=== PATIENT | male | born 1960 | race Caucasian/White ===

== ENCOUNTER 2016-10-28 08:07 | Inpatient (IN) | payer MEDICARE ==
[2016-10-28] MEDS ORDERED: NO HOME MEDICATION XX (08:08)
[2016-10-28 08:52] LABS: BASO % 0.4 % (0-2); EOS % 1.2 % (0-7); EOSINOPHIL ABSOLUTE COUNT 0.1 tho/cmm (0.0-0.7); HGB-HEMOGLOBIN 17.2 gm/dl (13.5-17.0); IMMATURE GRANULOCYTES ABSOLUTE 0.02 tho/cmm (0-0.03); IMMATURE GRANULOCYTES PERCENT 0.2 % (0-0.3); LYMPH ABSOLUTE COUNT 1.9 tho/cmm (0.8-4.5); MCH (MEAN CORPUSCULAR HGB) 39.8 pg (28.0-32.0); MCHC MEAN CORPUSCULAR HGB CONC 35.1 % (32.0-36.0); MCV (MEAN CELL VOLUME) 113.4 fl (82.0-96.0); MONO % 10.2 % (0-12); MONOCYTE ABSOLUTE COUNT 0.8 tho/cmm (0.0-1.2); NEUTROPHIL ABSOLUTE COUNT 5.2 tho/cmm (1.6-8.0); NEUTROPHIL-AUTOMATED 5.2 tho/cmm (1.6-8.0); PLATELET COUNT 539 tho/cmm (150-450); RED BLOOD COUNT 4.32 mil/cmm (4.40-5.70); WHITE BLOOD COUNT 8.1 tho/cmm (4.0-10.0)
[2016-10-28 08:53] LABS: RED CELL DISTRIBUTION WIDTH 14.1 % (12.4-16.4)
[2016-10-28 08:59] LABS: ALB/GLOB RATIO 0.7 (0.8-2.0); ALBUMIN 3.1 g/dl (3.5-5.0); ALKALINE PHOSPHATASE 293 U/L (33-138); ALT/SGPT 72 U/L (12-78); ANION GAP 20 mmol/L (0-20); AST/SGOT 78 U/L (10-40); BILIRUBIN,DIRECT 1.3 mg/dl (0.0-0.3); BILIRUBIN,TOTAL 2.3 mg/dl (0.0-1.5); BLOOD UREA NITROGEN 10 mg/dl (6-24); CARBON DIOXIDE-VENOUS 26 mmol/L (22-32); CHLORIDE 87 mmol/l (96-110); CREATININE 1.08 mg/dl (0.60-1.30); GLUCOSE 199 mg/dL (70-110); LIPASE 847 U/L (73-393); MAGNESIUM 1.6 mg/dl (1.3-2.6); SODIUM 131 mmol/L (135-145); eGFR VALUE FOR BLACK 90 mL/Min
[2016-10-28 10:25] LABS: URINE BILIRUBIN NEGATIVE (NEG); URINE BLOOD NEGATIVE (NEG); URINE GLUCOSE (UA) NEGATIVE (NEG); URINE KETONE NEGATIVE (NEG); URINE LEUKOCYTE ESTERASE NEGATIVE (NEG); URINE NITRITE NEGATIVE (NEG); URINE PROTEIN NEGATIVE (NEG); URINE SPECIFIC GRAVITY 1.015 (1.003-1.030)
[2016-10-28 10:26] LABS: URINE APPEARANCE CLEAR; URINE COLOR YELLOW
[2016-10-28 11:25] LABS: ALCOHOL (ETOH) <10 mg/dl (<10); PHOSPHOROUS 1.6 mg/dl (2.5-4.9)
[2016-10-28 23:19] LABS: ANION GAP 10 mmol/L (0-20); BLOOD UREA NITROGEN 10 mg/dl (6-24); CALCIUM 7.2 mg/dl (8.5-10.5); CARBON DIOXIDE-VENOUS 30 mmol/L (22-32); CHLORIDE 104 mmol/l (96-110); CREATININE 0.73 mg/dl (0.60-1.30); GLUCOSE 100 mg/dL (70-110); MAGNESIUM 1.4 mg/dl (1.3-2.6); SODIUM 141 mmol/L (135-145); eGFR VALUE FOR BLACK >90 mL/Min
[2016-10-28 23:23] LABS: POTASSIUM 2.6 mmol/L (3.7-5.1)
[2016-10-29 06:18] LABS: BASO % 1.4 % (0-2); BASO ABSOLUTE COUNT 0.1 tho/cmm (0.0-0.2); EOS % 2.4 % (0-7); EOSINOPHIL ABSOLUTE COUNT 0.1 tho/cmm (0.0-0.7); HCT-HEMATOCRIT 33.9 % (36.0-53.5); HGB-HEMOGLOBIN 11.9 gm/dl (13.5-17.0); IMMATURE GRANULOCYTES ABSOLUTE 0.01 tho/cmm (0-0.03); IMMATURE GRANULOCYTES PERCENT 0.2 % (0-0.3); LYMPH ABSOLUTE COUNT 1.3 tho/cmm (0.8-4.5); MCH (MEAN CORPUSCULAR HGB) 39.3 pg (28.0-32.0); MCHC MEAN CORPUSCULAR HGB CONC 35.1 % (32.0-36.0); MCV (MEAN CELL VOLUME) 111.9 fl (82.0-96.0); MONO % 9.4 % (0-12); MONOCYTE ABSOLUTE COUNT 0.5 tho/cmm (0.0-1.2); NEUTROPHIL ABSOLUTE COUNT 3.1 tho/cmm (1.6-8.0); NEUTROPHIL-AUTOMATED 3.1 tho/cmm (1.6-8.0); NEUTROPHILS % 61.6 % (40-80); PLATELET COUNT 288 tho/cmm (150-450); RED BLOOD COUNT 3.03 mil/cmm (4.40-5.70); RED CELL DISTRIBUTION WIDTH 14.3 % (12.4-16.4); WHITE BLOOD COUNT 5.1 tho/cmm (4.0-10.0)
[2016-10-29 06:38] LABS: ALBUMIN 2.1 g/dl (3.5-5.0); ALKALINE PHOSPHATASE 210 U/L (33-138); ALT/SGPT 75 U/L (12-78); BILIRUBIN,TOTAL 2.2 mg/dl (0.0-1.5); BLOOD UREA NITROGEN 8 mg/dl (6-24); CALCIUM 7.6 mg/dl (8.5-10.5); CARBON DIOXIDE-VENOUS 28 mmol/L (22-32); CHLORIDE 104 mmol/l (96-110); CREATININE 0.69 mg/dl (0.60-1.30); GLUCOSE 94 mg/dL (70-110); SODIUM 142 mmol/L (135-145); eGFR VALUE FOR BLACK >90 mL/Min
[2016-10-29 06:40] LABS: ALB/GLOB RATIO 0.7 (0.8-2.0); ANION GAP 13 mmol/L (0-20); AST/SGOT 116 U/L (10-40); LIPASE 488 U/L (73-393); POTASSIUM 3.1 mmol/L (3.7-5.1)
[2016-10-30 07:45] LABS: HGB-HEMOGLOBIN 13.1 gm/dl (13.5-17.0); PLATELET COUNT 352 tho/cmm (150-450)
[2016-10-30 08:02] LABS: ANION GAP 14 mmol/L (0-20); BLOOD UREA NITROGEN 7 mg/dl (6-24); CALCIUM 7.9 mg/dl (8.5-10.5); CARBON DIOXIDE-VENOUS 25 mmol/L (22-32); CHLORIDE 102 mmol/l (96-110); CREATININE 0.66 mg/dl (0.60-1.30); GLUCOSE 101 mg/dL (70-110); MAGNESIUM 1.3 mg/dl (1.3-2.6); PHOSPHOROUS 1.6 mg/dl (2.5-4.9); SODIUM 138 mmol/L (135-145); eGFR VALUE FOR BLACK >90 mL/Min
[2016-10-30 08:06] LABS: POTASSIUM 2.8 mmol/L (3.7-5.1)
[2016-10-30 14:46] LABS: URINE SODIUM-RANDOM 38 mmol/L (20-110)
[2016-10-30 14:47] LABS: URINE POTASSIUM RANDOM 9 mmol/L (12-62)
[2016-10-31 05:59] LABS: ALB/GLOB RATIO 0.7 (0.8-2.0); BILIRUBIN,DIRECT 1.3 mg/dl (0.0-0.3); BILIRUBIN,INDIRECT 0.4 mg/dL (0.0-1.0); BILIRUBIN,TOTAL 1.7 mg/dl (0.0-1.5); POTASSIUM 4.1 mmol/L (3.7-5.1)
[2016-10-31] MEDS ORDERED: ASPIRIN81 M1 PO (09:55)
[2016-10-31] MEDS ORDERED: CARAFATE1 G2 PO (09:56)
== END 2016-10-31 14:00 | DRG 439 ==
LOC: EDMED 08:07 → EMR2 10:53 → 5WE 13:30
PROVIDERS: Emergency Medicine; Internal Medicine; Physician Assistant; ADMIT Family Medicine
PROC: 3E0F7GC Introduction of Other Therapeutic Substance into Respiratory Tract, Via Natural or Artificial Opening (ICD-10-PCS; principal; 2016-10-28)
DX: K85.20 Alcohol induced acute pancreatitis without necrosis or infection (principal); E87.1 Hypo-osmolality and hyponatremia; R17 Unspecified jaundice; E87.6 Hypokalemia; F10.20 Alcohol dependence, uncomplicated; F32.9 Major depressive disorder, single episode, unspecified; G62.9 Polyneuropathy, unspecified; M54.9 Dorsalgia, unspecified; R63.0 Anorexia; R73.9 Hyperglycemia, unspecified; Z23 Encounter for immunization; K29.20 Alcoholic gastritis without bleeding; I70.0 Atherosclerosis of aorta
CPT/HCPCS: G0008; G0480; J1650; J2270; J2405; J3411; J3480; J7030; J7050; Q9967

== ENCOUNTER 2016-11-13 16:03 | Inpatient (IN) | payer MEDICARE ==
[~2016-11-13 16:03] MED LIST: ASPIRIN81 M1 PO; CARAFATE1 G2 PO; NO HOME MEDICATION XX
[2016-11-13] MEDS ORDERED: LEVAQUIN500 M1 PO ×2 (16:20→16:24)
[2016-11-13 17:00] LABS: BASO % 1.6 % (0-2); BASO ABSOLUTE COUNT 0.1 tho/cmm (0.0-0.2); EOS % 3.8 % (0-7); EOSINOPHIL ABSOLUTE COUNT 0.2 tho/cmm (0.0-0.7); HCT-HEMATOCRIT 31.7 % (36.0-53.5); HGB-HEMOGLOBIN 10.9 gm/dl (13.5-17.0); IMMATURE GRANULOCYTES ABSOLUTE 0.01 tho/cmm (0-0.03); IMMATURE GRANULOCYTES PERCENT 0.2 % (0-0.3); LYMPH % 21.9 % (20-45); LYMPH ABSOLUTE COUNT 1.2 tho/cmm (0.8-4.5); MCH (MEAN CORPUSCULAR HGB) 37.7 pg (28.0-32.0); MCHC MEAN CORPUSCULAR HGB CONC 34.4 % (32.0-36.0); MCV (MEAN CELL VOLUME) 109.7 fl (82.0-96.0); MEAN PLATELET VOLUME 9.6 cmc (9.4-12.4); MONO % 8.3 % (0-12); MONOCYTE ABSOLUTE COUNT 0.5 tho/cmm (0.0-1.2); NEUTROPHIL ABSOLUTE COUNT 3.6 tho/cmm (1.6-8.0); NEUTROPHIL-AUTOMATED 3.6 tho/cmm (1.6-8.0); NEUTROPHILS % 64.2 % (40-80); PLATELET COUNT 330 tho/cmm (150-450); RED BLOOD COUNT 2.89 mil/cmm (4.40-5.70); RED CELL DISTRIBUTION WIDTH 14.2 % (12.4-16.4); WHITE BLOOD COUNT 5.5 tho/cmm (4.0-10.0)
[2016-11-13 17:20] LABS: ALB/GLOB RATIO 0.8 (0.8-2.0); ALBUMIN 2.5 g/dl (3.5-5.0); ALCOHOL (ETOH) <10 mg/dl (<10); ALKALINE PHOSPHATASE 103 U/L (33-138); ALT/SGPT 47 U/L (12-78); ANION GAP 15 mmol/L (0-20); AST/SGOT 47 U/L (10-40); BILIRUBIN,TOTAL 0.5 mg/dl (0.0-1.5); BLOOD UREA NITROGEN 14 mg/dl (6-24); CALCIUM 6.6 mg/dl (8.5-10.5); CARBON DIOXIDE-VENOUS 21 mmol/L (22-32); CHLORIDE 112 mmol/l (96-110); CREATININE 0.61 mg/dl (0.60-1.30); GLUCOSE 82 mg/dL (70-110); MAGNESIUM 0.8 mg/dl (1.3-2.6); POTASSIUM 3.9 mmol/L (3.7-5.1); SODIUM 144 mmol/L (135-145); eGFR VALUE FOR BLACK >90 mL/Min
[2016-11-13 17:21] LABS: INR 1.1 INR (0.9-1.1)
[2016-11-13 17:25] LABS: TSH-THYROID STIMULATING HORM. 4.21 uIU/ml (0.40-3.80)
[2016-11-13 20:56] LABS: C-REACTIVE PROTEIN 2.1 mg/dl (0-0.9)
[2016-11-13 21:27] LABS: PROCALCITONIN 0.12 ng/ml (0.05-0.09)
[2016-11-13 22:52] LABS: MAGNESIUM 1.4 mg/dl (1.3-2.6)
[2016-11-14 00:02] LABS: AMYLASE 35 U/L (20-90); CKMB 3.4 ng/ml (<3.6)
[2016-11-14 00:05] LABS: CREATINE PHOSPHOKINASE (CPK) 386 U/L (35-232); LIPASE 151 U/L (73-393)
[2016-11-14 00:06] LABS: MAGNESIUM 1.3 mg/dl (1.3-2.6)
[2016-11-14 05:05] LABS: BASO % 1.4 % (0-2); BASO ABSOLUTE COUNT 0.1 tho/cmm (0.0-0.2); EOSINOPHIL ABSOLUTE COUNT 0.2 tho/cmm (0.0-0.7); HCT-HEMATOCRIT 28.5 % (36.0-53.5); HGB-HEMOGLOBIN 9.6 gm/dl (13.5-17.0); IMMATURE GRANULOCYTES ABSOLUTE 0.01 tho/cmm (0-0.03); IMMATURE GRANULOCYTES PERCENT 0.2 % (0-0.3); LYMPH % 26.4 % (20-45); LYMPH ABSOLUTE COUNT 1.1 tho/cmm (0.8-4.5); MCH (MEAN CORPUSCULAR HGB) 36.6 pg (28.0-32.0); MCHC MEAN CORPUSCULAR HGB CONC 33.7 % (32.0-36.0); MCV (MEAN CELL VOLUME) 108.8 fl (82.0-96.0); MEAN PLATELET VOLUME 9.7 cmc (9.4-12.4); MONO % 12.6 % (0-12); MONOCYTE ABSOLUTE COUNT 0.5 tho/cmm (0.0-1.2); NEUTROPHIL ABSOLUTE COUNT 2.3 tho/cmm (1.6-8.0); NEUTROPHIL-AUTOMATED 2.3 tho/cmm (1.6-8.0); NEUTROPHILS % 55.4 % (40-80); PLATELET COUNT 302 tho/cmm (150-450); RED BLOOD COUNT 2.62 mil/cmm (4.40-5.70); RED CELL DISTRIBUTION WIDTH 14.3 % (12.4-16.4); WHITE BLOOD COUNT 4.2 tho/cmm (4.0-10.0)
[2016-11-14 05:21] LABS: ANION GAP 14 mmol/L (0-20); BLOOD UREA NITROGEN 11 mg/dl (6-24); CALCIUM 6.6 mg/dl (8.5-10.5); CARBON DIOXIDE-VENOUS 20 mmol/L (22-32); CHLORIDE 114 mmol/l (96-110); CREATININE 0.51 mg/dl (0.60-1.30); GLUCOSE 79 mg/dL (70-110); POTASSIUM 3.9 mmol/L (3.7-5.1); SODIUM 144 mmol/L (135-145); eGFR VALUE FOR BLACK >90 mL/Min
[2016-11-15 06:37] LABS: HGB-HEMOGLOBIN 11.3 gm/dl (13.5-17.0); PLATELET COUNT 358 tho/cmm (150-450)
[2016-11-15] MEDS ORDERED: KEFLEX500 M4 PO (14:45)
[2016-11-15] MEDS ORDERED: STOP THE FOLLOWING (14:46)
== END 2016-11-15 15:20 | DRG 91 ==
LOC: EDMED 16:03 → EMR2 19:02 → 5WD 22:34
PROVIDERS: Emergency Medicine; Hospitalist; ADMIT Family Medicine
DX: G92 Toxic encephalopathy (principal); E43 Unspecified severe protein-calorie malnutrition; E87.2 Acidosis; L03.115 Cellulitis of right lower limb; E83.42 Hypomagnesemia; I82.501 Chronic embolism and thrombosis of unspecified deep veins of right lower extremity; F32.9 Major depressive disorder, single episode, unspecified; R21 Rash and other nonspecific skin eruption; F12.90 Cannabis use, unspecified, uncomplicated; I70.0 Atherosclerosis of aorta; Z86.018 Personal history of other benign neoplasm; Z79.82 Long term (current) use of aspirin; F41.9 Anxiety disorder, unspecified; M19.90 Unspecified osteoarthritis, unspecified site; E78.5 Hyperlipidemia, unspecified; F17.210 Nicotine dependence, cigarettes, uncomplicated; K21.9 Gastro-esophageal reflux disease without esophagitis; F10.10 Alcohol abuse, uncomplicated; D64.9 Anemia, unspecified; R00.0 Tachycardia, unspecified; Z68.30 Body mass index [BMI] 30.0-30.9, adult
CPT/HCPCS: G0480; J0696; J1650; J3475; J7030; J7050; Q9967